=== PATIENT | female | born 1995 | race African-American/Black ===

== ENCOUNTER 2017-07-23 16:28 | Inpatient (IN) | payer SELFPAY ==
[~2017-07-23] VITALS: Ht 172.7 cm; Wt 78.9 kg
[~2017-07-23 16:28] MED LIST: DIA250 PO
[2017-07-23 17:00] VITALS: BP 109/75
--- NOTE | 2017-07-23 17:12 | NUR ---
NOTIFIED OF PT---OKAYED TO GIVE ZOFRAN 4MG ODT NOW
[2017-07-23] MEDS ORDERED: ONDANSETRON 4 MG ODT PO ONE (17:15)
[2017-07-23] MEDS ORDERED: ONDANSETRON 4 MG ODT ONE (17:21)
--- NOTE | 2017-07-23 18:33 | NUR ---
PT W/C ASSISTED TO BED 2.
--- NOTE | 2017-07-23 18:36 | NUR ---
22F BIB MOTHER C/O GENERALIZED WEAKNESS X 2 WKS WITH HYPEREMESIS; PT STATES NO DIARRHEA AT THIS TIME; ABDOMEN SOFT, NON-TENDER, ACTIVE BOWEL SOUNDS X 4 QUADRANTS; PT C/O PELVIC PAIN, RADIATES TO LOWER ABDOMEN, 5/10 X 1 WEEK; PT C/O URINARY BURNING, URINARY FREQUENCY AND URINARY RETENTION X 3 WEEKS; PT SEEN AT [facility] 07/10/17 DX SYNCOPE, UTI, BUT UNABLE TO TAKE MEDS GIVEN D/T HYPEREMESIS; PT STATES 10 WEEKS PREGANT AT THIS TIME; PT AA&OX4, PERRLA, BL LUNG SOUNDS CLEAR, RR EVEN/UNLABORED, SKIN IS WARM/DRY/INTACT AT THIS TIME; PT RESTING IN BED WITH HOB ELEVATED AND IN LOWEST POSITION; POSITIONED FOR COMFORT; ER MD MADE AWARE OF STATUS. WILL CONTINUE TO MONITOR.
[2017-07-23] MEDS ORDERED: ONDANSETRON 4 MG/2 ML VIAL IVP ONE ×2 (18:45→21:05)
[2017-07-23] MEDS ORDERED: NACL 0.9% 1,000 ML IV ONE (18:45)
--- NOTE | 2017-07-23 19:06 | NUR ---
Pt report given to MASSIEL DÍAZ. Transfer of care at this time.
[2017-07-23 19:10] LABS: BASOPHILS # (AUTO) 0.3 K/uL (0.00-0.22); HEMATOCRIT 36.5 % (36-48); HEMOGLOBIN 11.6 g/dL (12.0-16.0); LYMPHOCYTES # (AUTO) 1.5 K/uL (2.5-16.5); MEAN CORPUSCULAR HEMOGLOBIN 25 pg (27-31); MEAN CORPUSCULAR HGB CONC 32 g/dL (33-37); MEAN CORPUSCULAR VOLUME 79 fL (80-94); MONOCYTES # (AUTO) 0.5 K/uL (0.8-1.0); NEUTROPHILS # (AUTO) 3.8 K/uL (1.8-7.7); PLATELET COUNT (AUTO) 229 K/uL (140-450); RED BLOOD CELL COUNT(AUTO) 4.61 MIL/uL (4.20-5.40); RED CELL DISTRIBUTION WIDTH 14.8 % (11.6-13.7); WHITE BLOOD COUNT (AUTO) 6.1 K/uL (4.5-11.0)
[2017-07-23] MEDS ORDERED: METOCLOPRAMIDE 10 MG/2 ML INJ VIAL IVP ONE (19:10)
[2017-07-23 19:27] LABS: BILIRUBIN,URINE 1+ (NEGATIVE); BLOOD, URINE NEGATIVE (NEGATIVE); COLOR,URINE YELLOW (YELLOW); LEUKOCYTE ESTERASE ,URINE 2+ (NEGATIVE); NITRITE, URINE NEGATIVE (NEGATIVE); UGLUCOSE NEGATIVE (NEGATIVE)
[2017-07-23 19:29] LABS: APPEARANCE,URINE CLOUDY (CLEAR)
[2017-07-23 19:31] LABS: ANION GAP 14.6 (8-16); CARBON DIOXIDE 25.8 mmol/L (21-32); CREATININE 0.6 mg/dL (0.6-1.3); POTASSIUM 3.4 mmol/L (3.5-5.1)
[2017-07-23 19:37] LABS: ALBUMIN 3.2 g/dL (3.4-5.0); TOTAL BILIRUBIN 0.3 mg/dL (0.0-1.0)
[2017-07-23 19:46] LABS: RBC,URINE NONE SEEN /HPF (0-5); WBC,URINE 20-60 /HPF (0-5)
--- NOTE | 2017-07-23 19:59 | NUR ---
Dr. Melton at bedside.
[2017-07-23] MEDS ORDERED: cefTRIAXone 1,000 MG VIAL ONE (20:19)
--- NOTE | 2017-07-23 20:34 | NUR ---
Patient appears to be resting comfortably in bed. Vital Signs within normal limits. Respirations even and unlabored.
--- NOTE | 2017-07-23 20:34 | NUR ---
CASSANDRA CHOWDHURY AT THIS TIME
[2017-07-23] MEDS ORDERED: PROMETHAZINE 25 MG/ML VIAL IVP ONE (21:30)
--- NOTE | 2017-07-23 22:00 | NUR ---
Pt transferred to Tele via cardiac monitoring. All belongings sent with patient. Mother also accompanied pt to the floor upon admission.
[2017-07-23] MEDS ORDERED: DOCUSATE SODIUM 100 MG GELCAP PO PRN (22:05)
[2017-07-23] MEDS ORDERED: ONDANSETRON 4 MG/2 ML VIAL IM/IVP PRN (22:05)
[2017-07-23] MEDS ORDERED: ACETAMINOPHEN 325 MG TAB PO PRN (22:05)
[2017-07-23] MEDS ORDERED: HYDROcodone/APAP 7.5/325 MG 1 TAB PO PRN (22:05)
[2017-07-23] MEDS ORDERED: MORPHINE SULFATE 2 MG/ML SYR IVP PRN (22:05)
[2017-07-23] MEDS ORDERED: LORazepam 0.5 MG TAB PO PRN (22:05)
[2017-07-23] MEDS ORDERED: ZOLPIDEM 5 MG TAB PO PRN (22:05)
[2017-07-23 22:20] VITALS: BP 113/72
--- NOTE | 2017-07-23 22:20 | NUR ---
Admitted from ER, with chief complaint of WORSENING INTERMITTENT NAUSEA/VOMITING FOR 3 WEEKS, DX UTI/HYPEREMESIS GRAVIDARUM. ACCOMPANIED BY PT'S MOTHER. 22 y/o, Female, Cooperative, AOX4, AMBULATORY, ABLE TO VERBALIZE NEEDS. TELECOMMUNICATIONS FIELD ENGINEER IN PLACE. PT DENIES CHEST PAIN, ABD PAIN, C/O BACK PAIN, PAIN TOLERABLE. PT REPORTS RELIEF OF NAUSEA/VOMITING AFTER PHENERAN IN ER. BOWEL SOUNDS ACTIVE ON ALL QUADRANTS, PT REPORTS LAST BM YESTERDAY. PT REPORTS BEING 10 WEEKS . PT REPORTS PAIN AT IV SITE, REQUESTS NEW IV, WILL INSERT NEW IV. DISCUSSED AND REVIEWED PLAN OF CARE WITH PT AND PT'S MOTHER, VERBALIZED UNDERSTANDING. oriented to call light, bed, phone,television, bathroom, smoking policy, visiting hours, procedures, ID bracelet on. Belongings list checked. ALL NEEDS MET. SAFETY MEASURES ENSURED. CALL LIGHT WITHIN REACH. WILL CONTINUE TO MONITOR.
[2017-07-23] MEDS ORDERED: ONDANSETRON 4 MG/2 ML VIAL IVP PRN (22:30)
[2017-07-23] MEDS: NACL 0.9% 1,000 ML IV SCH (23:00)
--- NOTE | 2017-07-23 23:00 | NUR ---
DR CHAO AT BEDSIDE TO DISCUSS PLAN OF CARE WITH PT AND PT'S MOTHER. INSERTED NEW IV ON L FOREARM 22G, ASYMPTOMATIC, PATENT AND INTACT, ADMINISTERED IVF ORDERED WITH EDUCATION. PT IS NOW ON CLEAR LIQUID DIET, PROVIDED PT WITH WATER, JELLO AND APPLE JUICE, NO NAUSEA/VOMITING AT THIS TIME. COLLECTED URINE SAMPLE, WILL SEND TO LAB.
[2017-07-23 23:01] LABS: CHOL/HDL RATIO 2.8 (1-4.5); FREE T4 (FREE THYROXINE) 1.5 ng/dL (0.76-1.46); MAGNESIUM 1.7 mg/dL (1.8-2.4); PHOSPHORUS 4.6 mg/dL (2.5-4.9); THYROID STIMULATING HORMONE 0.47 uIU/mL (0.34-3.74)
[2017-07-23 23:08] LABS: PROTHROMBIN TIME 10.6 secs (10.8-13.4)
[2017-07-24 00:36] LABS: BARBITURATE, URINE POS. ng/ml (NEG <=200); BENZODIAZEPINE, URINE NEG. ng/mL (NEG <=200); CANNABINOID, URINE POS. ng/mL (NEG <=50); COCAINE, URINE NEG. ng/mL (NEG <=300); OPIATE, URINE NEG. ng/mL (NEG <=2000); PHENCYCLIDINE SCREEN,URINE NEG. ng/mL (NEG <=25)
[2017-07-24] MEDS ORDERED: APAP/BUTAL/CAFF 325/50/40 MG 1 TAB PO PRN (03:00)
--- NOTE | 2017-07-24 03:30 | NUR ---
SPOKE WITH DR CHAO, MADE AWARE THAT PT IS C/O HEADACHE, PT REQUESTING FOR FIORICET WHICH PT REPORTS TO BE PRESCRIBED TO HER BY HER PCP. DR CHAO AT BEDSIDE TO DISCUSS MEDICATION RISKS AND BENEFITS FOR PT. PT VERBALIZED UNDERSTANDING. UNABLE TO PULL FIORICET FROM [place], RECEIVED MED FROM [facility] [employer]. ADMINISTERED FIORICET PO PRN WITH EDUCATION OF BENEFITS AND RISKS. PT VERBALIZED UNDERSTANDING. ALL NEEDS MET. IVF INFUSING WELL. SAFETY MEASURES ENSURED. CALL LIGHT WITHIN REACH.
[2017-07-24 04:00] VITALS: BP 100/56
[2017-07-24] MEDS ORDERED: PROMETHAZINE 25 MG/ML VIAL IVP PRN (05:15)
--- NOTE | 2017-07-24 07:30 | NUR ---
RECEIVED PT REPORTED FROM CASHIER COURTESY BOOTH NURSE. PT IS AWAKE, ALERT, OX4, AMBULATORY. ON TELE. PT DENIES PAIN AT THIS TIME. PT REPORTS BEING 10 WEEKS . IV NOTED TO THE LEFT HAND 22G, INFUSING WELL. ALL NEEDS MET. SAFETY MEASURES ENSURED. CALL LIGHT AND PHONE WITHIN REACH. WILL CONTINUE TO MONITOR.
--- NOTE | 2017-07-24 07:30 | NUR ---
PT MOVED TO BED 127A WITH BELONGINGS. ENDORSED PLAN OF CARE TO AM NURSE. CONDITION STABLE.
[2017-07-24 07:50] LABS: HEMATOCRIT 34.4 % (36-48); HEMOGLOBIN 10.7 g/dL (12.0-16.0); MEAN CORPUSCULAR HEMOGLOBIN 25 pg (27-31); MEAN CORPUSCULAR HGB CONC 31 g/dL (33-37); MEAN CORPUSCULAR VOLUME 80 fL (80-94); PLATELET COUNT (AUTO) 208 K/uL (140-450); RED CELL DISTRIBUTION WIDTH 14.4 % (11.6-13.7); WHITE BLOOD COUNT (AUTO) 5.9 K/uL (4.5-11.0)
[2017-07-24 08:00] VITALS: BP 111/68
[2017-07-24] MEDS: NACL 0.9% 1,000 ML IV SCH ×2 (08:05→21:00)
[2017-07-24 08:26] LABS: ANION GAP 13.6 (8-16); CARBON DIOXIDE 24.7 mmol/L (21-32); CREATININE 0.5 mg/dL (0.6-1.3); POTASSIUM 3.3 mmol/L (3.5-5.1)
--- NOTE | 2017-07-24 09:00 | NUR ---
PT C/O OF NAUSEA. SPOKE WITH DR GARRETT WHO ORDER BENADRYL. WILL ADMINISTER WHEN MED IS APPROVED.
[2017-07-24 09:09] LABS: MAGNESIUM 1.8 mg/dL (1.8-2.4); PHOSPHORUS 4.3 mg/dL (2.5-4.9)
[2017-07-24] MEDS: LACTOBACILLUS RHAMNOSUS GG 1 EACH CAP PO SCH (09:17)
[2017-07-24] MEDS: PYRIDOXINE 50 MG TAB PO SCH (09:18)
[2017-07-24 09:54] LABS: EOSINOPHILS % (MANUAL) 1 % (0-4); LYMPHOCYTES % (MANUAL) 43 % (20-46); MONOCYTES % (MANUAL) 4 % (5-12)
--- NOTE | 2017-07-24 10:00 | NUR ---
SPOKE WITH DR. BABIN THAT PT FEELS HUNGARY IF SHE CAN ADVANCE HER DIET.
[2017-07-24] MEDS: diphenhydrAMINE 50 MG/ML VIAL IVP PRN ×2 (10:12→22:07)
--- NOTE | 2017-07-24 10:45 | NUR ---
PATIENT HAS BEEN SCREENED AND CATEGORIZED HIGH NUTRITION RISK. PATIENT WILL BE SEEN WITHIN 1-2 DAYS OF ADMISSION. 07/24/17 - 07/25/[address]
--- NOTE | 2017-07-24 12:30 | NUR ---
PT'S DAD IS HERE, PT IS CALM IN BED, NO S/S OF DISTRESS. PT ATE A LITTLE BIT OF HER LUNCH BECAUSE SHE DOESN'T LIKE HER FOOD. SUGGESTED PT TO EAT SMALL QUANTITY AT A TIME THROUGHOUT THE DAY. CALLED [employer] TO SEND A MEAL SELECTION FORM FOR PT.
[2017-07-24] MEDS ORDERED: POTASSIUM CHLORIDE 40 MEQ, LIDOCAINE 1% 25 MG in NACL 0.9% 250 ML IV SCH (13:30)
[2017-07-24 16:00] VITALS: BP 110/72
--- NOTE | 2017-07-24 19:30 | NUR ---
ENDORSED PT TO BUSINESS DEVELOPMENT ANALYST NURSE. PT IN STABLE CONDITION.
--- NOTE | 2017-07-24 19:31 | NUR ---
PATIENT REPORT RECEIVED FROM MORNING NURSE AT BEDSIDE. PATIENT'S MOTHER IS AT BEDSIDE. NO SIGNS AND SYMPTOMS OF DISTRESS NOTED. NO COMPLAINTS OF PAIN AT THIS TIME. IV SITE NOTED ON LEFT HAND, IVF INFUSING WELL. BED IN LOWEST POSITION, SIDE RAILS UP AND CALL LIGHT WITHIN REACH. WILL CONTINUE TO MONITOR.
[2017-07-24] MEDS ORDERED: BISACODYL 5 MG TABEC PO PRN (20:45)
[2017-07-24] MEDS ORDERED: BISACODYL 10 MG SUPP RC PRN (21:05)
[2017-07-24] MEDS ORDERED: cefTRIAXone 1,000 MG VIAL ONE (21:53)
[2017-07-25 04:00] VITALS: BP 118/68
[2017-07-25] MEDS: NACL 0.9% 1,000 ML IV SCH ×2 (04:05→14:05)
[2017-07-25 08:00] VITALS: BP 107/59
--- NOTE | 2017-07-25 08:30 | NUR ---
ADMINISTERED SCHEDULED MEDS. PT COMPLAINED OF HEADACHE. ADMINISTERED TYLENOL. PT TOLERATED MEDS WELL. NO NAUSEA OR VOMITING NOTED. PT IN STABLE CONDITION. WILL CONTINUE TO MONITOR.
[2017-07-25] MEDS: PYRIDOXINE 50 MG TAB PO SCH (09:00)
[2017-07-25] MEDS: LACTOBACILLUS RHAMNOSUS GG 1 EACH CAP PO SCH (09:00)
[2017-07-25 10:53] LABS: ANION GAP 14.1 (8-16); CARBON DIOXIDE 21.5 mmol/L (21-32); CREATININE 0.4 mg/dL (0.6-1.3); POTASSIUM 3.6 mmol/L (3.5-5.1)
[2017-07-25 10:54] LABS: MAGNESIUM 1.8 mg/dL (1.8-2.4); PHOSPHORUS 3.7 mg/dL (2.5-4.9)
--- NOTE | 2017-07-25 11:30 | NUR ---
ADMINISTERED REGLAN FOR NAUSEA. PT STATED SHE HAD NO BM TODAY. GAVE PRUNE JUICE. PT TOLERATED WELL. STARTED NEW BAG OF NS. INFUSING AT 100ML/HR. PT DENIES PAIN. SPOKE WITH PT'S MOM ON PHONE. MADE AWARE OF PLAN FOR D/C TODAY. PT IS LYING IN BED ON LAPTOP. CALL LIGHT WITHIN REACH. WILL CONTINUE TO MONITOR.
[2017-07-25] MEDS ORDERED: METO-485 PO (11:33)
[2017-07-25] MEDS ORDERED: DIPH25TA53 PO (11:33)
[2017-07-25] MEDS ORDERED: AZIT250T11 PO (11:33)
[2017-07-25] MEDS ORDERED: FLOR250 PO (11:33)
[2017-07-25] MEDS ORDERED: MIRABULK PO (12:00)
[2017-07-25] MEDS ORDERED: DOCU-299 PO (12:00)
[2017-07-25] MEDS: METOCLOPRAMIDE 10 MG/2 ML INJ VIAL IVP PRN ×2 (12:07→18:27)
[2017-07-25 12:23] LABS: FOLIC ACID 12.7 ng/mL (>3.0); T4 (THYROXINE) 14.4 ug/dL (4.5-12.0)
[2017-07-25] MEDS ORDERED: INFLUENZA VIRUS VACCINE QUAD 0.5 ML SYR IMVAC ONE ×2 (12:25→14:10)
[2017-07-25] MEDS ORDERED: diphenhydrAMINE 50 MG/ML VIAL ONE (14:21)
[2017-07-25] MEDS: diphenhydrAMINE 50 MG/ML VIAL IVP PRN (14:24)
[2017-07-25] MEDS ORDERED: ALBUTEROL 0.083% 2.5 MG/3 ML NEBU INH PRN (14:30)
[2017-07-25] MEDS ORDERED: FAMO-90 PO (14:38)
[2017-07-25 15:58] LABS: HEMATOCRIT 34.5 % (36-48); HEMOGLOBIN 10.7 g/dL (12.0-16.0); MEAN CORPUSCULAR HEMOGLOBIN 25 pg (27-31); MEAN CORPUSCULAR HGB CONC 31 g/dL (33-37); MEAN CORPUSCULAR VOLUME 80 fL (80-94); PLATELET COUNT (AUTO) 206 K/uL (140-450); RED CELL DISTRIBUTION WIDTH 14.7 % (11.6-13.7); WHITE BLOOD COUNT (AUTO) 4.9 K/uL (4.5-11.0)
[2017-07-25] MEDS ORDERED: FAMOTIDINE 20 MG TAB PO SCH (16:00)
[2017-07-25] MEDS ORDERED: MAGNESIUM CITRATE 300 ML BTL PO SCH (16:00)
[2017-07-25 16:11] LABS: EOSINOPHILS % (MANUAL) 3 % (0-4); LYMPHOCYTES % (MANUAL) 38 % (20-46); MONOCYTES % (MANUAL) 9 % (5-12)
[2017-07-25] MEDS ORDERED: MAGNESIUM CITRATE 300 ML BTL ONE (16:44)
[2017-07-25] MEDS ORDERED: METOCLOPRAMIDE 10 MG/2 ML INJ VIAL ONE (18:24)
[2017-07-25] MEDS ORDERED: ALBUTEROL 0.083% 2.5 MG/3 ML NEBU INH ONE (18:59)
--- NOTE | 2017-07-25 19:00 | NUR ---
GAVE D/C FORMS AND INSTRUCTIONS WITH RX, LABS AND FOLLOW UP APPOINTMENT TO PT. PT VERBALIZED UNDERSTANDING AND SIGNED FORMS. D/C IV FROM LEFT HAND 22G. IV CATHETER TIP INTACT. APPLIED DRESSING TO SITE AND PRESSURE. NO BLEEDING NOTED. PT WAITING FOR MOM TO ARRIVE. GATHERED ALL PERSONAL BELONGINGS.
[2017-07-26] MEDS ORDERED: FAMOTIDINE 20 MG TAB PO SCH (09:00)
== END 2017-07-25 21:05 | disposition home or self-care (01) | DRG 781 ==
LOC: MED 16:28 → MTU 22:02 → MMU 07-24 09:11
PROVIDERS: ADMIT Family Medicine Sports Medicine; ATTEND Family Medicine Sports Medicine
DX: O21.0 Mild hyperemesis gravidarum (principal); N17.0 Acute kidney failure with tubular necrosis; G92 Toxic encephalopathy; E44.0 Moderate protein-calorie malnutrition; O23.41 Unspecified infection of urinary tract in pregnancy, first trimester; O26.831 Pregnancy related renal disease, first trimester; F12.10 Cannabis abuse, uncomplicated; D64.9 Anemia, unspecified; O99.011 Anemia complicating pregnancy, first trimester; O25.11 Malnutrition in pregnancy, first trimester; G89.29 Other chronic pain; O99.351 Diseases of the nervous system complicating pregnancy, first trimester; G43.909 Migraine, unspecified, not intractable, without status migrainosus; Z88.0 Allergy status to penicillin; Z3A.10 10 weeks gestation of pregnancy; Z90.89 Acquired absence of other organs; Z68.26 Body mass index [BMI] 26.0-26.9, adult
CPT/HCPCS: 36415; 76536; 76801; 80048; 80053; 80305; 81001; 81025; 82150; 82607; 82746; 82948; 83036; 83540; 83690; 83735; 83880; 84100; 84436; 84439; 84443; 84479; 84484; 84702; 85025; 85045; 85610; 85730; 86900; 86901; 87081; 87086; 90658; 93005; 96365; 96375; 99285; J0696; J1200; J2001; J2405; J2550; J2765; J3480; J7030; J7060; J7613; Q0092; S0119